=== PATIENT | male | born 1955 | race Caucasian/White ===

== ENCOUNTER 2016-03-15 17:40 | Emergency (ER) | payer OTHER ==
[~2016-03-15] VITALS: Ht 162.6 cm; Wt 72.9 kg
[~2016-03-15 17:40] MED LIST: ALAVERT10 MG PO; ALLERGY10 M2 PO; ATIVAN0.5 MG PO; ATIVAN1 MG PO; CEFTIN250 MG PO; CIPRO500 MG PO; CLARITIN10 M3 PO; Ceftin PO; DEPAKOTE500 MG PO; DETROL LA4 MG PO; DILANTIN100 MG PO; DITROPAN5 MG PO; DOCUSATE SODIU100 MG PO; DUCODYL5 MG PO; DULCOLAX5 MG PO; Depakote ER (Extende PO; Dulcolax PO; GERI-LANTA LIQ355 ML PO; LORATADINE10 M2 PO; LORAZEPAM2 MG PO; MIRALAX17 GM PO; MIRALAX255 GM PO; Miralax, Glycolax PO; PANTOPRAZOLE SO40 MG PO; PROTONIX40 MG PO; Protonix PO; TYLENOL REGULA325 MG PO; Tylenol Regular Stre PO; VIMPAT100 MG PO; VIMPAT200 MG PO; VIMPAT50 MG PO; VITAMIN D250000 UNIT PO
[2016-03-15 22:49] LABS: EOSINOPHIL (%) 0.9 % (0-5); EOSINOPHIL COUNT 0.1 K/uL (0-0.3); HEMATOCRIT 44.5 % (38.0-50.0); IMMATURE GRANULOCYTE (%) 0.1 % (0.0-0.7); IMMATURE GRANULOCYTE COUNT 0.1 K/uL; LYMPHOCYTE COUNT 3.2 K/uL (1.0-2.8); MCH 31.9 PG (29.0-34.0); MCHC 35.7 G/DL (30.0-36.0); MCV 89.4 FL (86-99); MEAN PLAT.VOLUME 9.1 uM^3 (9.0-12.4); MONOCYTE (%) 9.2 % (3-12); MONOCYTE COUNT 0.8 K/uL (0-0.8); NEUTROPHIL (%) 53.4 % (45-76); NEUTROPHIL COUNT 4.7 K/uL (1.8-6.4); PLATELET COUNT 248 K/uL (156-360); RBC DIS.WIDTH-CV 13.5 % (11.8-14.6); RBC DIS.WIDTH-SD 43.3 % (39-53); RED BLOOD COUNT 4.98 M/uL (4.00-5.50); WHITE BLOOD COUNT 8.8 K/uL (4.1-10.2)
[2016-03-15 23:00] LABS: CHLORIDE 107 mEq/L (99-109); POTASSIUM 3.5 mEq/L (3.7-5.4); SODIUM 141 mEq/L (136-147)
[2016-03-15 23:03] LABS: GLUCOSE 113 mg/dL (70-99)
[2016-03-15 23:04] LABS: ANION GAP 9 MEQ/L (2-14)
[2016-03-15 23:05] LABS: TOTAL BILIRUBIN 0.4 mg/dL (0.0-1.0)
[2016-03-15 23:06] LABS: ALKALINE PHOSPHATASE 111 IU/L (3-129); GFR ESTIMATE (CALCULATED) > 59 mL/min/
[2016-03-15 23:07] LABS: UREA NITROGEN (BUN) 13 mg/dL (9-23)
[2016-03-16 00:15] LABS: ADD MIUA? YES; BILIRUBIN NEGATIVE; BLOOD NEGATIVE; COLOR YELLOW ((YELLOW)); GLUCOSE (STRIP) NEGATIVE; KETONES TRACE; LEUKOCYTES NEGATIVE; NITRITE NEGATIVE; PH, URINE 6.5 (5-8); PROTEIN (STRIP) NEGATIVE; SPECIFIC GRAVITY 1.018 (1.000-1.030)
[2016-03-16 00:39] LABS: EPITHELIAL CELLS 1+; MUCUS RARE; RED BLOOD CELLS NONE SEEN /HPF (0-5); WHITE BLOOD CELLS 0-5 /HPF (0-5)
[2016-03-16 00:40] LABS: BACTERIA 1+; CASTS PRESENT /LPF; CRYSTALS NONE SEEN; HYALINE CASTS 0-5 /LPF; UCUL ADDED? NO
[2016-03-16 00:52] VITALS: BP 151/80
== END 2016-03-16 01:02 | disposition home or self-care (01) ==
LOC: EME 17:40
PROVIDERS: Emergency Medicine
DX: R53.1 Weakness (principal); E86.0 Dehydration; R41.0 Disorientation, unspecified; F79 Unspecified intellectual disabilities
CPT/HCPCS: 80053; 81003; 83605; 85025; 99281; 99285; J7030

== ENCOUNTER 2016-05-21 15:39 | Inpatient (IN) | payer OTHER ==
[~2016-05-21] VITALS: Ht 170.2 cm; Wt 61.3 kg
[2016-05-21 16:40] LABS: HEMATOCRIT 47.2 % (38.0-50.0); MCH 31.3 PG (29.0-34.0); MCHC 33.7 G/DL (30.0-36.0); MCV 92.9 FL (86-99); MEAN PLAT.VOLUME 9.3 uM^3 (9.0-12.4); PLATELET COUNT 322 K/uL (156-360); RBC DIS.WIDTH-SD 44.6 % (39-53); RED BLOOD COUNT 5.08 M/uL (4.00-5.50); WHITE BLOOD COUNT 9.2 K/uL (4.1-10.2)
[2016-05-21 16:55] LABS: CHLORIDE 108 mEq/L (99-109); POTASSIUM 4.4 mEq/L (3.7-5.4); SODIUM 144 mEq/L (136-147)
[2016-05-21 16:57] LABS: GLUCOSE 92 mg/dL (70-99)
[2016-05-21 16:58] LABS: ANION GAP 12 MEQ/L (2-14)
[2016-05-21 17:01] LABS: GFR ESTIMATE (CALCULATED) > 59 mL/min/; UREA NITROGEN (BUN) 19 mg/dL (9-23)
[2016-05-21] MEDS ORDERED: HEMORRHOIDAL OI PR (21:19)
[2016-05-21] MEDS ORDERED: DETROL LA4 MG PO (21:19)
[2016-05-21] MEDS ORDERED: NEOSPORIN ANT70.8 GM TP (21:22)
[2016-05-21] MEDS ORDERED: MIRALAX255 GM PO (21:25)
[2016-05-22 16:00] VITALS: BP 128/36
[2016-05-22 16:34] VITALS: BP 137/75
[2016-05-22 20:00] VITALS: BP 109/62
[2016-05-23] VITALS: BP 123/91
[2016-05-23 04:00] VITALS: BP 132/67
[2016-05-23 07:30] VITALS: BP 147/70
[2016-05-23 17:27] VITALS: BP 133/94
[2016-05-24] VITALS: BP 116/77
[2016-05-24 08:00] VITALS: BP 114/66
[2016-05-24 15:44] VITALS: BP 109/86
[2016-05-24 19:41] VITALS: BP 124/67
[2016-05-25 00:24] VITALS: BP 125/68
[2016-05-25 04:05] VITALS: BP 136/71
[2016-05-25 15:12] LABS: C DIFF TOXIN NEGATIVE (NEGATIVE)
[2016-05-25 15:42] LABS: PROBE CHECK PASS; SPECIMEN PROCESSING CONTROL PASS
[2016-05-26 01:02] VITALS: BP 129/67
[2016-05-26 07:19] LABS: EOSINOPHIL (%) 0.1 % (0-5); HEMATOCRIT 37.8 % (38.0-50.0); IMMATURE GRANULOCYTE (%) 0.9 % (0.0-0.7); IMMATURE GRANULOCYTE COUNT 0.1 K/uL; INSTRUMENT ABS NEUTROPHIL CT 7.7 K/uL; LYMPHOCYTE COUNT 1.5 K/uL (1.0-2.8); MCH 30.9 PG (29.0-34.0); MCHC 34.9 G/DL (30.0-36.0); MEAN PLAT.VOLUME 9.3 uM^3 (9.0-12.4); MONOCYTE (%) 10.6 % (3-12); MONOCYTE COUNT 1.1 K/uL (0-0.8); NEUTROPHIL (%) 73.7 % (45-76); NEUTROPHIL COUNT 7.7 K/uL (1.8-6.4); PLATELET COUNT 256 K/uL (156-360); RBC DIS.WIDTH-CV 12.9 % (11.8-14.6); RBC DIS.WIDTH-SD 42.2 % (39-53); RED BLOOD COUNT 4.27 M/uL (4.00-5.50); WHITE BLOOD COUNT 10.4 K/uL (4.1-10.2)
[2016-05-26 07:25] LABS: MCV 88.5 FL (86-99)
[2016-05-26 07:33] LABS: ANION GAP 14 MEQ/L (2-14); CHLORIDE 100 MEQ/L (99-109); GFR ESTIMATE (CALCULATED) > 59 mL/min/; GLUCOSE 76 mg/dL (70-99); SAMPLE HEMOLYSIS CHECK 0; SAMPLE ICTERIC CHECK 0; SAMPLE LIPEMIA CHECK 0; UREA NITROGEN (BUN) 4 mg/dL (9-23)
[2016-05-26 07:36] LABS: POTASSIUM 3.4 MEQ/L (3.7-5.4); SODIUM 136 MEQ/L (136-147)
[2016-05-26 20:00] VITALS: BP 107/67
[2016-05-26 23:45] VITALS: BP 118/67
[2016-05-27 23:24] VITALS: BP 125/67
[2016-05-28 07:46] VITALS: BP 105/65
[2016-05-28 07:46] LABS: EOSINOPHIL (%) 2.8 % (0-5); EOSINOPHIL COUNT 0.1 K/uL (0-0.3); HEMATOCRIT 35.1 % (38.0-50.0); IMMATURE GRANULOCYTE (%) 0.9 % (0.0-0.7); INSTRUMENT ABS NEUTROPHIL CT 2.1 K/uL; LYMPHOCYTE COUNT 1.5 K/uL (1.0-2.8); MCH 30.8 PG (29.0-34.0); MCHC 34.2 G/DL (30.0-36.0); MCV 90.2 FL (86-99); MEAN PLAT.VOLUME 9.5 uM^3 (9.0-12.4); MONOCYTE COUNT 0.9 K/uL (0-0.8); NEUTROPHIL (%) 45.1 % (45-76); NEUTROPHIL COUNT 2.1 K/uL (1.8-6.4); PLATELET COUNT 217 K/uL (156-360); RBC DIS.WIDTH-CV 13.6 % (11.8-14.6); RBC DIS.WIDTH-SD 44.9 % (39-53); RED BLOOD COUNT 3.89 M/uL (4.00-5.50)
[2016-05-28 07:49] LABS: WHITE BLOOD COUNT 4.7 K/uL (4.1-10.2)
[2016-05-28 07:53] LABS: ANION GAP 9 MEQ/L (2-14); CHLORIDE 106 MEQ/L (99-109); GFR ESTIMATE (CALCULATED) > 59 mL/min/; GLUCOSE 103 mg/dL (70-99); POTASSIUM 3.1 MEQ/L (3.7-5.4); SAMPLE HEMOLYSIS CHECK 0; SAMPLE ICTERIC CHECK 0; SAMPLE LIPEMIA CHECK 0; SODIUM 141 MEQ/L (136-147); UREA NITROGEN (BUN) 3 mg/dL (9-23)
[2016-05-28] MEDS ORDERED: ASPIRIN81 M2 PO (14:29)
[2016-05-28] MEDS ORDERED: Depakene PO (14:29)
[2016-05-28 15:57] LABS: HDL CHOLESTEROL 26 MG/DL (Desirable>=40); LDL CHOLESTEROL 129 mg/dL (Desirable<100); NON-HDL CHOLESTEROL 180 mg/dL (Desirable<160); TOTAL CHOLESTEROL 206 mg/dL (Desirable<200); TRIGLYCERIDES 255 MG/DL (Normal: <150)
[2016-05-28 16:06] VITALS: BP 111/69
[2016-05-28 23:16] VITALS: BP 125/61
[2016-05-29 08:53] VITALS: BP 112/67
[2016-05-29 16:57] VITALS: BP 105/57
== END 2016-05-29 16:55 | disposition home or self-care (01) | DRG 65 ==
LOC: EME 15:39 → EDOF 05-22 02:22 → 5SOUTH 05-22 03:33 → EDOF 05-22 03:33 → 5SOUTH 05-22 15:59
PROVIDERS: Hospitalist; Internal Medicine; Physician Assistant
DX: I63.9 Cerebral infarction, unspecified (principal); G40.001 Localization-related (focal) (partial) idiopathic epilepsy and epileptic syndromes with seizures of localized onset, not intractable, with status epilepticus; G40.909 Epilepsy, unspecified, not intractable, without status epilepticus; I65.22 Occlusion and stenosis of left carotid artery; F79 Unspecified intellectual disabilities; G80.9 Cerebral palsy, unspecified; E55.9 Vitamin D deficiency, unspecified; F41.9 Anxiety disorder, unspecified; E78.5 Hyperlipidemia, unspecified; K21.9 Gastro-esophageal reflux disease without esophagitis; Z87.440 Personal history of urinary (tract) infections; Z79.899 Other long term (current) drug therapy
CPT/HCPCS: 70450; 70551; 71010; 80048; 80061; 80164; 80185; 81003; 82140; 82550; 83036; 83605; 85025; 85027; 87086; 87493; 93880; 94799; 99281; 99285; C9113; J1650; J2060; J2250; J2370; J3010

== ENCOUNTER 2016-06-01 10:11 | Emergency (ER) | payer OTHER ==
[~2016-06-01] VITALS: Ht 157.5 cm; Wt 63.3 kg
[~2016-06-01 10:11] MED LIST changes: +ASPIRIN81 M2 PO; +Depakene PO; +HEMORRHOIDAL OI PR; +NEOSPORIN ANT70.8 GM TP
[2016-06-01 10:51] LABS: BASOPHIL COUNT 0.1 K/uL (0-0.1); EOSINOPHIL (%) 1.9 % (0-5); EOSINOPHIL COUNT 0.2 K/uL (0-0.3); HEMATOCRIT 41.1 % (38.0-50.0); IMMATURE GRANULOCYTE (%) 1.9 % (0.0-0.7); IMMATURE GRANULOCYTE COUNT 0.2 K/uL; INSTRUMENT ABS NEUTROPHIL CT 3.8 K/uL; LYMPHOCYTE COUNT 2.9 K/uL (1.0-2.8); MCH 31.1 PG (29.0-34.0); MCHC 34.1 G/DL (30.0-36.0); MCV 91.3 FL (86-99); MONOCYTE (%) 10.1 % (3-12); MONOCYTE COUNT 0.8 K/uL (0-0.8); NEUTROPHIL (%) 48.5 % (45-76); NEUTROPHIL COUNT 3.8 K/uL (1.8-6.4); PLATELET COUNT 428 K/uL (156-360); RBC DIS.WIDTH-CV 13.9 % (11.8-14.6); RBC DIS.WIDTH-SD 46.6 % (39-53); WHITE BLOOD COUNT 7.8 K/uL (4.1-10.2)
[2016-06-01 11:04] LABS: CHLORIDE 109 mEq/L (99-109); POTASSIUM 3.6 mEq/L (3.7-5.4); SODIUM 145 mEq/L (136-147)
[2016-06-01 11:07] LABS: GLUCOSE 105 mg/dL (70-99)
[2016-06-01 11:08] LABS: ANION GAP 7 MEQ/L (2-14)
[2016-06-01 11:09] LABS: TOTAL BILIRUBIN 0.3 mg/dL (0.0-1.0)
[2016-06-01 11:10] LABS: ALKALINE PHOSPHATASE 126 IU/L (3-129); GFR ESTIMATE (CALCULATED) > 59 mL/min/
[2016-06-01 11:11] LABS: UREA NITROGEN (BUN) 9 mg/dL (9-23)
[2016-06-01 12:43] VITALS: BP 99/84
== END 2016-06-01 12:46 | disposition home or self-care (01) ==
LOC: EME 10:11
PROVIDERS: Emergency Medicine
DX: R13.10 Dysphagia, unspecified (principal); Z86.73 Personal history of transient ischemic attack (TIA), and cerebral infarction without residual deficits; F79 Unspecified intellectual disabilities; K21.9 Gastro-esophageal reflux disease without esophagitis; R56.9 Unspecified convulsions
CPT/HCPCS: 71010; 80053; 85025; 99281; 99284

== ENCOUNTER 2016-07-05 08:21 | Inpatient (IN) | payer OTHER ==
[~2016-07-05] VITALS: Ht 167.6 cm; Wt 63.6 kg
[2016-07-05 09:01] LABS: HEMATOCRIT 48.5 % (38.0-50.0); MCH 31.8 PG (29.0-34.0); MCHC 33.8 G/DL (30.0-36.0); MEAN PLAT.VOLUME 8.8 uM^3 (9.0-12.4); PLATELET COUNT 328 K/uL (156-360); RBC DIS.WIDTH-CV 12.9 % (11.8-14.6); RBC DIS.WIDTH-SD 44.9 % (39-53); RED BLOOD COUNT 5.16 M/uL (4.00-5.50); WHITE BLOOD COUNT 19.8 K/uL (4.1-10.2)
[2016-07-05 09:13] LABS: CHLORIDE 104 mEq/L (99-109); POTASSIUM 4.7 mEq/L (3.7-5.4); SODIUM 138 mEq/L (136-147)
[2016-07-05 09:14] LABS: GLUCOSE 104 mg/dL (70-99)
[2016-07-05 09:16] LABS: ANION GAP 10 MEQ/L (2-14)
[2016-07-05 09:18] LABS: GFR ESTIMATE (CALCULATED) > 59 mL/min/
[2016-07-05 09:19] LABS: UREA NITROGEN (BUN) 14 mg/dL (9-23)
[2016-07-05 09:20] LABS: INTER. NORMALIZED RATIO 1.9; PROTHROMBIN TIME 19.4 (9.2-11.2)
[2016-07-05 09:23] LABS: TROP-I INTERPRETATION NEGATIVE; TROPONIN-I < 0.01 ng/mL (0.0-0.30)
[2016-07-05] MEDS ORDERED: DEPAKOTE250 MG PO (10:54)
[2016-07-05 12:18] LABS: BILIRUBIN NEGATIVE; BLOOD NEGATIVE; COLOR YELLOW ((YELLOW)); GLUCOSE (STRIP) NEGATIVE; KETONES NEGATIVE; LEUKOCYTES NEGATIVE; NITRITE NEGATIVE; PROTEIN (STRIP) NEGATIVE; SPECIFIC GRAVITY 1.017 (1.000-1.030); UROBILINOGEN 0.2 MG/DL (0.2-1.0)
[2016-07-05 12:21] LABS: ADD MIUA? NO; UCUL ADDED? NO
[2016-07-05 20:00] VITALS: BP 114/63
[2016-07-06] VITALS: BP 122/60
[2016-07-06 04:00] VITALS: BP 117/81
[2016-07-06 08:01] VITALS: BP 121/74
[2016-07-06 11:07] VITALS: BP 129/73
[2016-07-06 15:29] VITALS: BP 131/70
[2016-07-06 16:30] LABS: HDL CHOLESTEROL 55 MG/DL (Desirable>=40); LDL CHOLESTEROL 122 mg/dL (Desirable<100); NON-HDL CHOLESTEROL 149 mg/dL (Desirable<160); TOTAL CHOLESTEROL 204 mg/dL (Desirable<200); TRIGLYCERIDES 135 MG/DL (Normal: <150)
[2016-07-06 20:00] VITALS: BP 157/96
[2016-07-07] VITALS (7 sets, daily range): BP systolic 114–146; BP diastolic 61–99
[2016-07-07 08:59] LABS: EOSINOPHIL (%) 1.6 % (0-5); EOSINOPHIL COUNT 0.2 K/uL (0-0.3); HEMATOCRIT 43.1 % (38.0-50.0); IMMATURE GRANULOCYTE (%) 0.5 % (0.0-0.7); IMMATURE GRANULOCYTE COUNT 0.1 K/uL; LYMPHOCYTE COUNT 2.5 K/uL (1.0-2.8); MCH 31.6 PG (29.0-34.0); MCHC 34.3 G/DL (30.0-36.0); MCV 92.1 FL (86-99); MEAN PLAT.VOLUME 9.2 uM^3 (9.0-12.4); MONOCYTE (%) 10.6 % (3-12); MONOCYTE COUNT 1.2 K/uL (0-0.8); NEUTROPHIL (%) 64.4 % (45-76); PLATELET COUNT 295 K/uL (156-360); RBC DIS.WIDTH-CV 12.8 % (11.8-14.6); RBC DIS.WIDTH-SD 43.2 % (39-53); RED BLOOD COUNT 4.68 M/uL (4.00-5.50); WHITE BLOOD COUNT 10.9 K/uL (4.1-10.2)
[2016-07-07 09:16] LABS: ANION GAP 10 MEQ/L (2-14); CHLORIDE 104 MEQ/L (99-109); GFR ESTIMATE (CALCULATED) > 59 mL/min/; SAMPLE HEMOLYSIS CHECK 3; SAMPLE ICTERIC CHECK 0; SAMPLE LIPEMIA CHECK 0; SODIUM 140 MEQ/L (136-147); UREA NITROGEN (BUN) 9 mg/dL (9-23)
[2016-07-07 09:17] LABS: GLUCOSE 73 mg/dL (70-99)
[2016-07-07 10:29] LABS: POTASSIUM 3.8 MEQ/L (3.7-5.4)
[2016-07-08 04:07] VITALS: BP 102/65
[2016-07-08 07:56] VITALS: BP 100/59
[2016-07-08 11:26] VITALS: BP 101/59
[2016-07-08 15:57] VITALS: BP 101/60
[2016-07-09 00:06] VITALS: BP 119/87
[2016-07-09 03:50] VITALS: BP 148/60
[2016-07-09 08:27] VITALS: BP 108/64
[2016-07-09 12:18] VITALS: BP 110/70
[2016-07-09] MEDS ORDERED: DITROPAN5 MG PO (14:29)
[2016-07-09] MEDS ORDERED: ASPIR-LOW81 MG PO (14:29)
[2016-07-09] MEDS ORDERED: Depakene PO (14:29)
[2016-07-09] MEDS ORDERED: POLYETHYLENE GL17 GM PO (14:29)
[2016-07-09] MEDS ORDERED: PREVACID SOLUTA30 MG PO (14:29)
[2016-07-09] MEDS ORDERED: PRAVASTATIN SOD40 MG PO (14:29)
[2016-07-09 16:13] VITALS: BP 120/76
== END 2016-07-09 18:08 | disposition home or self-care (01) | DRG 65 ==
LOC: EME 08:21 → 5SOUTH 10:50 → EDOF 10:50 → 5SOUTH 14:23
PROVIDERS: Emergency Medicine; Internal Medicine
DX: I63.9 Cerebral infarction, unspecified (principal); R13.10 Dysphagia, unspecified; R56.9 Unspecified convulsions; G81.94 Hemiplegia, unspecified affecting left nondominant side; R50.9 Fever, unspecified; K21.9 Gastro-esophageal reflux disease without esophagitis; N40.0 Benign prostatic hyperplasia without lower urinary tract symptoms; G80.9 Cerebral palsy, unspecified; R41.82 Altered mental status, unspecified; E78.5 Hyperlipidemia, unspecified; E56.9 Vitamin deficiency, unspecified; F41.9 Anxiety disorder, unspecified; G40.909 Epilepsy, unspecified, not intractable, without status epilepticus; Z51.5 Encounter for palliative care; G31.9 Degenerative disease of nervous system, unspecified; R32 Unspecified urinary incontinence; R26.2 Difficulty in walking, not elsewhere classified; F79 Unspecified intellectual disabilities; Z87.01 Personal history of pneumonia (recurrent); Z87.440 Personal history of urinary (tract) infections; Z86.73 Personal history of transient ischemic attack (TIA), and cerebral infarction without residual deficits
CPT/HCPCS: 70450; 71010; 74230; 80048; 80061; 80164; 80185; 81003; 82140; 84484; 84999; 85025; 85027; 85610; 85730; 87086; 92611 GN; 93005; 99281; 99285; J1650; J1956; J2060; J3480; J7030

== ENCOUNTER 2016-07-31 20:15 | Emergency (ER) | payer OTHER ==
[~2016-07-31] VITALS: Ht 165.1 cm; Wt 63.0 kg
[~2016-07-31 20:15] MED LIST changes: +ASPIR-LOW81 MG PO; +DEPAKOTE250 MG PO; +POLYETHYLENE GL17 GM PO; +PRAVASTATIN SOD40 MG PO; +PREVACID SOLUTA30 MG PO
[2016-07-31 23:57] VITALS: BP 129/109
== END 2016-08-01 00:01 | disposition home or self-care (01) ==
LOC: EME 20:15
DX: S42.121A Displaced fracture of acromial process, right shoulder, initial encounter for closed fracture (principal); W06.XXXA Fall from bed, initial encounter; Y92.10 Unspecified residential institution as the place of occurrence of the external cause; Z88.5 Allergy status to narcotic agent; Z88.8 Allergy status to other drugs, medicaments and biological substances; Z88.1 Allergy status to other antibiotic agents; F79 Unspecified intellectual disabilities
CPT/HCPCS: 71010; 73030; 99281; 99283

== ENCOUNTER → 2016-10-25 | Outpatient (CLI) | payer OTHER | END | disposition home or self-care (01) | DX: R13.12 Dysphagia, oropharyngeal phase (principal); I63.9 Cerebral infarction, unspecified; R13.11 Dysphagia, oral phase; R13.13 Dysphagia, pharyngeal phase | CPT/HCPCS: 92611 GN; G8996 GN; G8997 GN; G8998 GN ==

== ENCOUNTER 2017-05-14 20:13 | Inpatient (IN) | payer OTHER ==
[~2017-05-14] VITALS: Ht 152.4 cm; Wt 61.6 kg
[2017-05-15 00:11] LABS: BASOPHIL (%) 0.3 % (0-1); EOSINOPHIL (%) 0.1 % (0-5); HEMATOCRIT 42.6 % (38.0-50.0); HEMOGLOBIN 14.4 G/DL (12.5-16.6); IMMATURE GRANULOCYTE (%) 0.8 % (0.0-0.7); LYMPHOCYTE (%) 11.6 % (15-42); LYMPHOCYTE COUNT 1.5 K/uL (1.0-2.8); MCH 32.1 PG (29.0-34.0); MCHC 33.8 G/DL (30.0-36.0); MCV 95.1 FL (86-99); MONOCYTE COUNT 2.5 K/uL (0-0.8); NEUTROPHIL (%) 68.2 % (45-76); NEUTROPHIL COUNT 8.9 K/uL (1.8-6.4); PLATELET COUNT 144 K/uL (156-360); RBC DIS.WIDTH-CV 13.7 % (11.8-14.6); RBC DIS.WIDTH-SD 48.1 % (39-53); RED BLOOD COUNT 4.48 M/uL (4.00-5.50)
[2017-05-15 00:27] LABS: TROP-I INTERPRETATION NEGATIVE; TROPONIN-I 0.07 ng/mL (0.0-0.30)
[2017-05-15 01:20] LABS: CHLORIDE 109 MEQ/L (99-109); CREATININE 1.1 MG/DL (0.6-1.3); GFR ESTIMATE (CALCULATED) > 59 mL/min/ (58.99-99999); GLUCOSE 108 mg/dL (70-99); POTASSIUM 4.1 MEQ/L (3.7-5.4); SODIUM 147 MEQ/L (136-147); UREA NITROGEN (BUN) 32 mg/dL (9-23)
[2017-05-15] MEDS ORDERED: DIVALPROEX SOD500 M1 PO (03:14)
[2017-05-15] MEDS ORDERED: ALLERGY RELIEF10 M1 PO (03:16)
[2017-05-15] MEDS ORDERED: OMEPRAZOLE20 MG PO (03:17)
[2017-05-15] MEDS ORDERED: MIRTAZAPINE15 MG PO (03:17)
[2017-05-15] MEDS ORDERED: DILANTIN100 MG PO (03:22)
[2017-05-15 04:14] VITALS: BP 116/90
[2017-05-15 07:17] VITALS: BP 115/58
[2017-05-15 15:14] VITALS: BP 120/78
[2017-05-15] MEDS ORDERED: PRAVASTATIN SOD20 MG PO (17:57)
[2017-05-15 23:52] VITALS: BP 128/55
[2017-05-16 06:18] LABS: BASOPHIL (%) 0.4 % (0-1); EOSINOPHIL (%) 0.1 % (0-5); HEMATOCRIT 39.7 % (38.0-50.0); HEMOGLOBIN 12.9 G/DL (12.5-16.6); IMMATURE GRANULOCYTE (%) 0.7 % (0.0-0.7); LYMPHOCYTE (%) 28.3 % (15-42); LYMPHOCYTE COUNT 2.1 K/uL (1.0-2.8); MCH 31.5 PG (29.0-34.0); MCHC 32.5 G/DL (30.0-36.0); MCV 96.8 FL (86-99); MONOCYTE (%) 16.7 % (3-12); MONOCYTE COUNT 1.3 K/uL (0-0.8); NEUTROPHIL (%) 53.8 % (45-76); PLATELET COUNT 118 K/uL (156-360); RBC DIS.WIDTH-CV 13.9 % (11.8-14.6); RBC DIS.WIDTH-SD 49.9 % (39-53); WHITE BLOOD COUNT 7.5 K/uL (4.1-10.2)
[2017-05-16 06:40] LABS: ALKALINE PHOSPHATASE 55 IU/L (3-129); ALT (GPT) 14 IU/L (3-49); AST (GOT) 28 IU/L (2-34); CHLORIDE 115 MEQ/L (99-109); CREATININE 0.8 MG/DL (0.6-1.3); GFR ESTIMATE (CALCULATED) > 59 mL/min/ (58.99-99999); GLUCOSE 107 mg/dL (70-99); POTASSIUM 3.7 MEQ/L (3.7-5.4); SODIUM 146 MEQ/L (136-147); TOTAL BILIRUBIN 0.6 MG/DL (0.0-1.0); TOTAL PROTEIN 5.5 G/DL (6.4-8.3); UREA NITROGEN (BUN) 16 mg/dL (9-23)
[2017-05-16 07:39] LABS: APPEARANCE SL.HAZY ((CLEAR)); BILIRUBIN NEGATIVE; BLOOD NEGATIVE; COLOR YELLOW ((YELLOW)); GLUCOSE (STRIP) NEGATIVE; KETONES 5; LEUKOCYTES NEGATIVE; NITRITE NEGATIVE; PROTEIN (STRIP) NEGATIVE
[2017-05-16 08:05] VITALS: BP 140/64
[2017-05-16 08:19] LABS: BACTERIA NONE SEEN /HPF; EPITHELIAL CELLS RARE /HPF; MUCUS NONE SEEN /LPF; RED BLOOD CELLS 0-5 /HPF (0-5); UCUL ADDED? NO; WHITE BLOOD CELLS 0-5 /HPF (0-5)
[2017-05-16] MEDS ORDERED: LEVETIRACETAM1000 MG PO (09:38)
[2017-05-16 16:14] VITALS: BP 139/83
[2017-05-17 00:22] VITALS: BP 00/00
[2017-05-17 10:00] LABS: BASOPHIL (%) 0.4 % (0-1); BASOPHIL COUNT 0.1 K/uL (0-0.1); EOSINOPHIL (%) 0 % (0-5); HEMATOCRIT 36.7 % (38.0-50.0); HEMOGLOBIN 12.2 G/DL (12.5-16.6); IMMATURE GRANULOCYTE (%) 0.5 % (0.0-0.7); LYMPHOCYTE (%) 19.3 % (15-42); LYMPHOCYTE COUNT 2.6 K/uL (1.0-2.8); MCH 31.5 PG (29.0-34.0); MCHC 33.2 G/DL (30.0-36.0); MCV 94.8 FL (86-99); MONOCYTE (%) 13.6 % (3-12); MONOCYTE COUNT 1.8 K/uL (0-0.8); NEUTROPHIL (%) 66.2 % (45-76); NEUTROPHIL COUNT 8.7 K/uL (1.8-6.4); PLATELET COUNT 137 K/uL (156-360); RBC DIS.WIDTH-SD 48.7 % (39-53); RED BLOOD COUNT 3.87 M/uL (4.00-5.50); WHITE BLOOD COUNT 13.2 K/uL (4.1-10.2)
[2017-05-17 10:24] LABS: CHLORIDE 116 MEQ/L (99-109); CREATININE 0.8 MG/DL (0.6-1.3); GFR ESTIMATE (CALCULATED) > 59 mL/min/ (58.99-99999); GLUCOSE 98 mg/dL (70-99); POTASSIUM 3.5 MEQ/L (3.7-5.4); SODIUM 147 MEQ/L (136-147); UREA NITROGEN (BUN) 13 mg/dL (9-23)
[2017-05-17 16:23] VITALS: BP 125/63
[2017-05-18 07:30] VITALS: BP 105/55
[2017-05-18 17:23] VITALS: BP 100/59
[2017-05-18 23:58] VITALS: BP 146/62
[2017-05-19] VITALS (7 sets, daily range): BP systolic 103–150; BP diastolic 65–100
[2017-05-19 11:01] LABS: CREATININE 0.8 MG/DL (0.6-1.3); GFR ESTIMATE (CALCULATED) > 59 mL/min/ (58.99-99999); VANCOMYCIN, TROUGH 16.6 MCG/ML (10-20)
[2017-05-19 18:57] LABS: BASOPHIL (%) 0.4 % (0-1); EOSINOPHIL (%) 2.6 % (0-5); EOSINOPHIL COUNT 0.2 K/uL (0-0.3); HEMATOCRIT 33.8 % (38.0-50.0); HEMOGLOBIN 10.9 G/DL (12.5-16.6); IMMATURE GRANULOCYTE (%) 1.3 % (0.0-0.7); LYMPHOCYTE COUNT 2.4 K/uL (1.0-2.8); MCH 32.4 PG (29.0-34.0); MCHC 32.2 G/DL (30.0-36.0); MONOCYTE (%) 11.8 % (3-12); NEUTROPHIL (%) 54.9 % (45-76); NEUTROPHIL COUNT 4.6 K/uL (1.8-6.4); PLATELET COUNT 136 K/uL (156-360); RBC DIS.WIDTH-CV 14.7 % (11.8-14.6); RBC DIS.WIDTH-SD 54.5 % (39-53); RED BLOOD COUNT 3.36 M/uL (4.00-5.50); WHITE BLOOD COUNT 8.3 K/uL (4.1-10.2)
[2017-05-19 18:58] LABS: MCV 100.6 FL (86-99)
[2017-05-19 19:12] LABS: BASE EXCESS -0.8 mEq/L (-3 to +3); BICARBONATE 23.2 mEq/L (22-26); METHEMOGLOBIN 1.9 % (0-1.5); PCO2 35 mm Hg (35-45); PO2 50 mm Hg (80-100); pH 7.43 (7.35-7.45)
[2017-05-19 19:13] LABS: COMMENTS - BLOOD GASES C+A+; DEVICE HHFNC; FI02 50 %; O2 FLOW 30 L/MIN; SITE LR; TOTAL RESP RATE 30 resp/min
[2017-05-19 19:16] LABS: CHLORIDE 117 MEQ/L (99-109); CREATININE 0.6 MG/DL (0.6-1.3); GFR ESTIMATE (CALCULATED) > 59 mL/min/ (58.99-99999); GLUCOSE 95 mg/dL (70-99); POTASSIUM 3.9 MEQ/L (3.7-5.4); SODIUM 147 MEQ/L (136-147); UREA NITROGEN (BUN) 13 mg/dL (9-23)
[2017-05-20] VITALS (21 sets, daily range): BP systolic 88–134; BP diastolic 48–89
[2017-05-20 06:31] LABS: CHLORIDE 120 MEQ/L (99-109); CREATININE 0.7 MG/DL (0.6-1.3); GFR ESTIMATE (CALCULATED) > 59 mL/min/ (58.99-99999); GLUCOSE 105 mg/dL (70-99); POTASSIUM 4.3 MEQ/L (3.7-5.4); SODIUM 151 MEQ/L (136-147); UREA NITROGEN (BUN) 11 mg/dL (9-23)
[2017-05-20 07:13] LABS: HEMATOCRIT 32.9 % (38.0-50.0); HEMOGLOBIN 10.5 G/DL (12.5-16.6); MCHC 31.9 G/DL (30.0-36.0); MCV 100.3 FL (86-99); NRBC (%) 0.4 /100 WBC (0-0); PLATELET COUNT 153 K/uL (156-360); RBC DIS.WIDTH-CV 14.6 % (11.8-14.6); RBC DIS.WIDTH-SD 53.7 % (39-53); RED BLOOD COUNT 3.28 M/uL (4.00-5.50); WHITE BLOOD COUNT 8.5 K/uL (4.1-10.2)
[2017-05-21] VITALS (12 sets, daily range): BP systolic 94–123; BP diastolic 51–74
[2017-05-21 05:18] LABS: CHLORIDE 116 mEq/L (99-109); SODIUM 146 mEq/L (136-147)
[2017-05-21 05:19] LABS: GLUCOSE 147 mg/dL (70-99)
[2017-05-21 05:23] LABS: CREATININE 0.7 mg/dL (0.6-1.3); GFR ESTIMATE (CALCULATED) > 59 mL/min/ (58.99-99999)
[2017-05-21 05:24] LABS: UREA NITROGEN (BUN) 9 mg/dL (9-23)
[2017-05-22] VITALS (7 sets, daily range): BP systolic 100–130; BP diastolic 51–64
[2017-05-23 04:32] VITALS: BP 116/60
[2017-05-23 09:09] VITALS: BP 129/67
[2017-05-23 12:00] VITALS: BP 125/68
[2017-05-23 17:00] VITALS: BP 126/70
[2017-05-23 19:19] VITALS: BP 102/62
[2017-05-23 23:40] VITALS: BP 120/68
[2017-05-24 03:07] VITALS: BP 137/77
[2017-05-24 07:30] VITALS: BP 138/72
[2017-05-24 12:30] VITALS: BP 126/76
[2017-05-24 18:13] VITALS: BP 135/67
[2017-05-24 19:45] VITALS: BP 114/64
[2017-05-25] VITALS (7 sets, daily range): BP systolic 110–134; BP diastolic 60–89
[2017-05-26] VITALS (7 sets, daily range): BP systolic 110–163; BP diastolic 57–84
[2017-05-26 07:27] LABS: BASOPHIL (%) 0.3 % (0-1); EOSINOPHIL (%) 1.7 % (0-5); EOSINOPHIL COUNT 0.2 K/uL (0-0.3); HEMATOCRIT 34.9 % (38.0-50.0); HEMOGLOBIN 11.3 G/DL (12.5-16.6); IMMATURE GRANULOCYTE (%) 2.7 % (0.0-0.7); LYMPHOCYTE (%) 37.9 % (15-42); LYMPHOCYTE COUNT 3.3 K/uL (1.0-2.8); MCH 31.7 PG (29.0-34.0); MCHC 32.4 G/DL (30.0-36.0); MONOCYTE (%) 12.7 % (3-12); MONOCYTE COUNT 1.1 K/uL (0-0.8); NEUTROPHIL (%) 44.7 % (45-76); NEUTROPHIL COUNT 3.9 K/uL (1.8-6.4); RBC DIS.WIDTH-CV 13.8 % (11.8-14.6); RBC DIS.WIDTH-SD 49.7 % (39-53); RED BLOOD COUNT 3.56 M/uL (4.00-5.50); WHITE BLOOD COUNT 8.7 K/uL (4.1-10.2)
[2017-05-26 07:33] LABS: PLATELET COUNT 269 K/uL (156-360)
[2017-05-26 08:03] LABS: CHLORIDE 112 MEQ/L (99-109); CREATININE 0.9 MG/DL (0.6-1.3); GFR ESTIMATE (CALCULATED) > 59 mL/min/ (58.99-99999); GLUCOSE 81 mg/dL (70-99); POTASSIUM 4.4 MEQ/L (3.7-5.4); SODIUM 147 MEQ/L (136-147)
[2017-05-26 08:05] LABS: UREA NITROGEN (BUN) 32 mg/dL (9-23)
[2017-05-27 04:12] VITALS: BP 121/62
[2017-05-27 09:00] VITALS: BP 112/63
[2017-05-27 15:52] VITALS: BP 125/64
== END 2017-05-27 17:54 | disposition home or self-care (01) | DRG 189 ==
LOC: EME → EDBD 20:13 → EME 20:13 → EDOF 05-15 02:45 → 4WEST 05-15 02:45 → 5EAST 05-15 02:45 → ENRESERV 05-15 02:46 → 5EAST 05-15 03:41 → ENRESERV 05-19 18:23 → 5EAST 05-19 18:25 → 4WEST 05-19 18:29 → CANRESERV 05-21 11:31 → ENRESERV 05-21 11:31 → 4EAST 05-21 17:58
PROVIDERS: Emergency Medicine; Internal Medicine; Internal Medicine Critical Care Medicine; Obstetrics & Gynecology
DX: J96.01 Acute respiratory failure with hypoxia (principal); J18.1 Lobar pneumonia, unspecified organism; I69.351 Hemiplegia and hemiparesis following cerebral infarction affecting right dominant side; F72 Severe intellectual disabilities; G80.9 Cerebral palsy, unspecified; G40.909 Epilepsy, unspecified, not intractable, without status epilepticus; F79 Unspecified intellectual disabilities; E78.5 Hyperlipidemia, unspecified; F41.9 Anxiety disorder, unspecified; K21.9 Gastro-esophageal reflux disease without esophagitis; K58.9 Irritable bowel syndrome, unspecified; N40.0 Benign prostatic hyperplasia without lower urinary tract symptoms; Z91.19 Patient's noncompliance with other medical treatment and regimen; I69.391 Dysphagia following cerebral infarction; R13.10 Dysphagia, unspecified; Z78.1 Physical restraint status
CPT/HCPCS: 31720; 36600; 71045; 80048; 80053; 80164; 80202; 81003; 82565; 82803; 82948; 83605; 84484; 85025; 85027; 87040; 87502; 87641; 92526 GN; 93005; 94640; 94640 76; 94760; 94799; 99202; 99281; 99285; C1753; J0456; J0692; J1165; J1200; J1630; J1650; J1953; J2060; J2250; J2270; J2920; J2930; J3370; J7042; J7050; J7512